=== PATIENT | female | born 1975 | race Hispanic/Latino ===

== ENCOUNTER 2019-08-24 11:44 | Observation (INO) | payer BC, OTHER ==
[~2019-08-24] VITALS: Ht 157.5 cm; Wt 88.5 kg
--- OUTSIDE RECORDS SUMMARY | 2019-08-24 11:47 | XMS REPORT ---
Author Author [facility] Address Unknown Phone Unavailable Care Team Providers Care Statement Services Representative Name Role Phone Unavailable Unavailable Payers Payer Name Policy Type Policy Number Effective Date Expiration Date Problems This patient has no known problems. Allergies, Adverse Reactions, Alerts Allergy Name Allergy Type Status Severity Reaction(s) Onset Date Inactive Date Treating Clinician Comments Penicillins DA Active OR 2008-12-14 00:00:00 Medications This patient has no known medications. Encounters Start Date/Time End Date/Time Encounter Type Admission Type Attending Clinicians Care Facility Care Department Encounter ID 2019-02-05 10:47:50 Outpatient [id number]
[2019-08-24] MEDS ORDERED: SODIUM CHLORIDE 0.9% 1000ML 1,000 ML IV STA (12:13)
[2019-08-24] MEDS ORDERED: MORPHINE SULFATE INJ 4 MG/ML INJ 1ML IV STA (12:17)
[2019-08-24] MEDS ORDERED: ASPIRIN 81 MG CHEW TAB PO ONE ×2 (12:30→14:30)
[2019-08-24 12:36] LABS: BASOPHILS % 0.3 % (0.0-1.0); EOSINOPHILS # (AUTO) 0.3 (0.0-0.4); EOSINOPHILS % 2.6 % (0.0-6.0); HEMATOCRIT 39.8 % (34.2-44.1); HEMOGLOBIN 13.7 g/dL (12.0-16.0); LYMPHOCYTES # (AUTO) 3.2 (1.0-3.2); LYMPHOCYTES % 29.3 % (18.0-39.1); MEAN CORPUSCULAR HEMOGLOBIN 29.5 pg (28-32); MEAN CORPUSCULAR HGB CONC 34.4 g/dL (31-35); MEAN CORPUSCULAR VOLUME 85.8 fL (81-99); MONOCYTES # (AUTO) 0.6 (0.2-0.8); MONOCYTES % 5.1 % (4.4-11.3); NEUTROPHILS # (AUTO) 6.9 (2.1-6.9); NEUTROPHILS % 62.4 % (38.7-80.0); PLATELET COUNT 411 x10e3/uL (140-360); RED BLOOD COUNT 4.64 x10e6/uL (3.6-5.1); RED CELL DISTRIBUTION WIDTH 11.7 % (11.7-14.4)
[2019-08-24 13:14] LABS: ALANINE AMINOTRANSFERASE 33 IU/L (0-55); ALBUMIN 3.9 g/dL (3.5-5.0); ALBUMIN/GLOBULIN RATIO 1.2 (0.8-2.0); ALKALINE PHOSPHATASE 139 IU/L (40-150); BLOOD UREA NITROGEN 12 mg/dL (7-26); BUN/CREATININE RATIO 17 (6-25); CALCIUM 9.7 mg/dL (8.4-10.2); CHLORIDE 100 mmol/L (98-107); CREATINE KINASE 107 IU/L (29-168); CREATININE, SERUM 0.72 mg/dL (0.57-1.11); EST GLOMERULAR FILTRATION RATE > 60 ML/MIN (60-); GLUCOSE 290 mg/dL (74-118); POTASSIUM 3.8 mmol/L (3.5-5.1); SODIUM 137 mmol/L (136-145)
[2019-08-24] MEDS ORDERED: MORPHINE SULFATE INJ 4 MG/ML INJ 1ML IV PRN (14:15)
[2019-08-24 14:38] LABS: ANION GAP 17.8 mmol/L (8-16); CARBON DIOXIDE 23 mmol/L (22-29)
[2019-08-24 15:20] VITALS: BP 137/89
--- NOTE | 2019-08-24 15:20 | NUR ---
PT RECEIVED FROM ER. AAOX4. EDUCATED PT ABOUT HOSPITAL POLICY AND FALL PRECAUTIONS. PT VERBALIZED UNDERSTANDING. AT BEDSIDE. BED IS LOW AND LOCKED. SIDE RAILS X2. CALL LIGHT WITH IN EASY REACH. INSTRUCTED PT TO USE CALL LIGHT FOR ALL THE NEEDS. PT CAME WITH CHEST PAIN. HOME MEDS RECONCILED AND RECHECKED WITH PT. PAGED DR. GOMES AND INFORMED ABOUT PT CHEST PAIN AND HOME MEDS. WAITING FOR THE RESPONSE FROM THE DR. PT DENIES NEEDS AT THIS TIME.
[2019-08-24] MEDS ORDERED: METOPROLOL SUCC25 MG PO (15:35)
[2019-08-24] MEDS ORDERED: GLIMEPIRIDE4 MG PO (15:35)
[2019-08-24] MEDS ORDERED: METFORMIN HCL500 MG PO (15:35)
[2019-08-24] MEDS ORDERED: LISINOPRIL10 MG PO (15:35)
[2019-08-24] MEDS ORDERED: ATORVASTATIN CA10 MG PO (15:35)
--- NOTE | 2019-08-24 15:47 | Diagnostic Imaging Report ---
Examination: Single AP view of the chest. COMPARISON: None. INDICATION: Left-sided chest wall pain DISCUSSION: Lines/tubes: None. Lungs: Linear atelectasis in the left lower lung. Pleura: No pleural effusion or pneumothorax. Heart and mediastinum: The heart and the mediastinum are unremarkable. Bones and soft tissues: No acute bony abnormalities. IMPRESSION: 1. Left lower lung linear atelectasis Signed by: Dr. Denny Li M.D. on 08/24/2019 3:44 PM
[2019-08-24 15:50] VITALS: BP 137/89
[2019-08-24] MEDS: ONDANSETRON HCL INJ 2MG/ML 2ML 2 MG/ML VIAL IV PRN ×2 (15:59→20:51)
[2019-08-24] MEDS ORDERED: DEXTROSE 50% SYRINGE 50 ML IV PRN (16:00)
[2019-08-24] MEDS: LISINOPRIL 10 MG TAB PO SCH (16:06)
[2019-08-24] MEDS: METOPROLOL SUCCINATE 25 MG TAB XL PO SCH (16:07)
--- NOTE | 2019-08-24 16:40 | NUR ---
DR. TALLEY AT BEDSIDE.
[2019-08-24] MEDS ORDERED: KETOROLAC TROMETHAMINE 30 MG/ML VIAL IV NR (17:00)
[2019-08-24] MEDS: INSULIN REGULAR, HUMAN 100 UNIT/1 ML 3ML VIAL SQ SCH ×2 (17:00→20:54)
[2019-08-24] MEDS: ESCITALOPRAM OXALATE 10 MG TAB PO SCH (17:29)
[2019-08-24 18:13] VITALS: BP 137/89
--- NOTE | 2019-08-24 19:00 | NUR ---
BEDSIDE SHIFT REPORT GIVEN TO THE BLACK BELT RN. PT DENIED FURTHER NEEDS.
[2019-08-24 19:20] VITALS: BP 134/88
[2019-08-24] MEDS: ATORVASTATIN 10 MG TAB PO SCH (20:51)
[2019-08-24 22:24] VITALS: BP 134/88
[2019-08-24 23:28] VITALS: BP 122/59
[2019-08-25 00:03] LABS: CREATINE KINASE 71 IU/L (29-168)
[2019-08-25 04:05] VITALS: BP 131/79
[2019-08-25] MEDS ORDERED: ACETAMINOPHEN 325 MG TAB ONE (05:39)
[2019-08-25 05:45] LABS: BASOPHILS % 0.3 % (0.0-1.0); EOSINOPHILS # (AUTO) 0.1 (0.0-0.4); EOSINOPHILS % 0.7 % (0.0-6.0); HEMATOCRIT 35.6 % (34.2-44.1); HEMOGLOBIN 12.2 g/dL (12.0-16.0); LYMPHOCYTES # (AUTO) 2.2 (1.0-3.2); LYMPHOCYTES % 19.6 % (18.0-39.1); MEAN CORPUSCULAR HEMOGLOBIN 29.5 pg (28-32); MEAN CORPUSCULAR HGB CONC 34.3 g/dL (31-35); MEAN CORPUSCULAR VOLUME 86.2 fL (81-99); MONOCYTES # (AUTO) 0.6 (0.2-0.8); MONOCYTES % 4.8 % (4.4-11.3); NEUTROPHILS # (AUTO) 8.5 (2.1-6.9); NEUTROPHILS % 74.3 % (38.7-80.0); PLATELET COUNT 409 x10e3/uL (140-360); RED BLOOD COUNT 4.13 x10e6/uL (3.6-5.1); RED CELL DISTRIBUTION WIDTH 11.6 % (11.7-14.4)
[2019-08-25] MEDS: ACETAMINOPHEN 325 MG TAB PO PRN ×2 (05:51→12:11)
[2019-08-25 05:59] LABS: ALANINE AMINOTRANSFERASE 33 IU/L (0-55); ALBUMIN 3.4 g/dL (3.5-5.0); ALBUMIN/GLOBULIN RATIO 1.1 (0.8-2.0); ALKALINE PHOSPHATASE 127 IU/L (40-150); ANION GAP 13.2 mmol/L (8-16); BLOOD UREA NITROGEN 14 mg/dL (7-26); BUN/CREATININE RATIO 21 (6-25); CALCIUM 9.2 mg/dL (8.4-10.2); CARBON DIOXIDE 27 mmol/L (22-29); CHLORIDE 100 mmol/L (98-107); CREATININE, SERUM 0.68 mg/dL (0.57-1.11); EST GLOMERULAR FILTRATION RATE > 60 ML/MIN (60-); GLUCOSE 305 mg/dL (74-118); POTASSIUM 4.2 mmol/L (3.5-5.1); SODIUM 136 mmol/L (136-145)
[2019-08-25 06:14] LABS: CREATINE KINASE 60 IU/L (29-168)
[2019-08-25 07:22] LABS: CHOL/HDL RATIO 3.6 (3.0-3.6)
[2019-08-25] MEDS: INSULIN REGULAR, HUMAN 100 UNIT/1 ML 3ML VIAL SQ SCH ×4 (07:30→20:29)
--- NOTE | 2019-08-25 07:50 | NUR ---
PATIENT IS ALERT AND IN STABLE CONDITION WITH NO S/S OF RESPIRATORY DISTRESS. NO PAIN VOICED. TELEMETRY APPLIED. CALL LIGHT IS WITHIN REACH, PATIENT INSTRUCTED TO CALL FOR ASSISTANCE NEEDED.
[2019-08-25] MEDS: ESCITALOPRAM OXALATE 10 MG TAB PO SCH (08:15)
[2019-08-25] MEDS: LISINOPRIL 10 MG TAB PO SCH ×2 (08:15→16:14)
[2019-08-25] MEDS: METOPROLOL SUCCINATE 25 MG TAB XL PO SCH ×2 (08:15→16:14)
[2019-08-25 08:57] VITALS: BP 148/87
[2019-08-25 09:01] VITALS: BP 148/87
--- NOTE | 2019-08-25 09:45 | NUR ---
H&P cc; cp HPI: 44yoF, PCP , developed cp for 3 days; some SOB; no dizziness; had stress test about 5yrs ago- reported as negative by pt. PMH: obesity, DM2, HTn, HLD, mood d/o PShx: cholecystecotomy, csection x2 Allergie;s see emr FH/SH; ; no cigs meds; see MAR ROS; no f/c/s/N/V/D/COLLINS/dizziness/skinrash/focal limb weakness/confusion v/s revd PE tired appearing anicteric ns1s2 mod bs soft nt nd no e/t skin dry n. affect a&ox3; [place] labs/meds revd A/P: 44yoF Atypical chest pain- trend enzymes; stress test outpt; use meloxicam Obesity- 1/2 portion sizes BMI 35.7 DM2- uncontrolled; Hb1c/LDL= 9.9/65 HTN- cont BB HLD- cont statin Mood d/o- cont SSRI Prop; lovenox; pepcid dispo: d/c planning; stress test outpt Osvaldo Baez MD, PHD>
[2019-08-25] MEDS ORDERED: ONDANSETRON HCL 4 MG ORAL DISINTEGRATING TAB PO PRN (11:15)
[2019-08-25 13:00] VITALS: BP 139/87
[2019-08-25] MEDS: METFORMIN HCL 750 MG TAB ER PO SCH ×2 (13:41→16:14)
[2019-08-25] MEDS: MELOXICAM 7.5 MG TAB PO SCH (13:55)
[2019-08-25] MEDS: FAMOTIDINE 20 MG TAB PO SCH (16:14)
[2019-08-25 16:37] VITALS: BP 135/91
[2019-08-25] MEDS ORDERED: ENOXAPARIN SOD INJ 40 MG/0.4 ML SYR SC SCH (17:00)
--- NOTE | 2019-08-25 19:19 | NUR ---
PATIENT IN STABLE CONDITION WITH NO S/S OF RESPIRATORY DISTRESS. NO PAIN VOICED. TELEMETRY APPLIED. FAMILY MEMBERS PRESENT IN ROOM. CALL LIGHT IS WITHIN REACH, PATIENT INSTRUCTED TO CALL FOR ASSISTANCE NEEDED. BEDSIDE SHIFT REPORT GIVEN TO ONCOMING NURSE.
[2019-08-25 20:00] VITALS: BP 107/77
[2019-08-25] MEDS: ATORVASTATIN 10 MG TAB PO SCH (20:29)
--- NOTE | 2019-08-25 20:41 | NUR ---
reported to Dr Baez patient c/o headache 02/01 and Tylenol not helping. Patient requesting something else for headache. New order received. Patient updated on POC and new medication.
[2019-08-25] MEDS ORDERED: ACETAMIN/BUTALBITAL/CAFFEINE TAB PO PRN (20:45)
[2019-08-26 00:04] VITALS: BP 119/79
[2019-08-26 04:00] VITALS: BP 116/63
[2019-08-26 05:44] LABS: CHOL/HDL RATIO 3.4 (3.0-3.6)
--- NOTE | 2019-08-26 06:19 | NUR ---
D/C summary Principal Dx: Atypical chest pain- trend enzymes; stress test outpt; use meloxicam Obesity- 1/2 portion sizes BMI 35.7 DM2- uncontrolled; Hb1c/LDL= 9.9/65 Secondary Dx; HTN- cont BB HLD- cont statin Mood d/o- cont SSRI Prop; lovenox; pepcid dispo: d/c planning; stress test outpt 08/26/19 Hba1c/LDL 9.9/45 d/c home; echo read pending; stable f/u pcp 1 week d/c>35mins Osvaldo Baez MD, PHD>
--- NOTE | 2019-08-26 07:04 | NUR ---
Bedside report and rounds completed with oncoming nurse. Patient in bed with call light within reach. No issues or concerns noted.
[2019-08-26] MEDS: INSULIN REGULAR, HUMAN 100 UNIT/1 ML 3ML VIAL SQ SCH ×2 (07:30→11:30)
--- NOTE | 2019-08-26 07:40 | Consultation ---
DATE OF CONSULTATION: 08/24/2019 IDENTIFYING DATA: The patient admitted on the [address] Baez and seen on 23 of August. HISTORY OF PRESENT ILLNESS: This 44-year-old patient was kindly referred for cardiac evaluation. The patient presented to the emergency room complaining of left precordial chest pain. The pain has been there for about three days and the patient was supposed to visit myself on the 24 of August. However, the pain became so severe and kind of paralyzing her that she was brought to the emergency room. The pain that she is complaining about is sharp, aggravated with inspiration, coughing, sneezing, and also with motion. The patient does not seem to be radiating and is not associated with any nausea or vomiting. However, the patient stated that the pain became almost constant. She tried to take some Advil twice a day, which did not seem to be helping her pain and that is when she decided to be evaluated and get help and presented herself to the emergency room. PAST MEDICAL HISTORY: The patient's past history reveals that I did perform a previous cardiac catheterization, which only showed minimal coronary artery disease and normal left ventricular function. Abdominal aortogram also showed no evidence of aneurysm and normal renal arteries. The patient also has a history of hyperlipidemia, diabetes mellitus, hypertension, and she also has a history of tachycardia and palpitations as well as anxiety. ALLERGIES: PENICILLIN. SOCIAL HISTORY: Negative. FAMILY HISTORY: Noncontributory. REVIEW OF SYSTEMS: Remainder of systems review revealed the patient denies any headache or sore throat. The patient denies any fever. She has no cough or sputum production. The patient denies any abdominal pain, diarrhea, or constipation. The patient denies any leg pain or leg swelling. PHYSICAL EXAMINATION: VITAL SIGNS: Reveals temperature of 97.2. NECK: Carotid pulses are present. There is no vascular bruit. CHEST: Clear to auscultation. CARDIOVASCULAR SYSTEM: Normal apical rhythm. First and 2nd are normal. There is no S3. There is no rub. ABDOMEN: Soft. There is no tenderness. No organomegaly. EXTREMITIES: Pulses are present. Both feet are warm. There is no calf tenderness. There is no peripheral edema. NEUROLOGIC: Reveals no motor defects and also pulses present throughout in the lower and upper extremities and carotid arteries. The patient's chest x-ray shows some cardiomegaly and atelectasis of the left lung base, but no evidence of congestive heart failure. Cardiac enzymes have been normal. The patient's laboratories mainly showed an elevated blood glucose with the other parameters being essentially within normal limits. The patient's echocardiogram is abnormal, showing some anterior ST-T changes. However, this has been present in the past and there do not seem to be any changes from previous electrocardiograms. IMPRESSION: 1. Chest pain syndrome, atypical for coronary artery disease. 2. Hypertension. 3. Diabetes mellitus. 4. Anxiety. 5. Increased BMI. I would recommend to give one dose of Toradol 30 mg intravenously to relieve chest pain, which is still present at the moment after the patient has been given some morphine. Also, I would like to start the patient on Lexapro 20 mg daily and obtain echocardiogram to rule out any kind of pericardial disease and repeat the patient's electrocardiogram. At the moment, the patient is on insulin on the sliding scale and she is on Lipitor 10 mg daily, lisinopril 10 mg daily, metoprolol succinate 25 mg twice daily, and Lovenox 40 mg subcu daily as well as 81 mg of aspirin daily and I would recommend to continue the present medications. Thank you very much for letting me see this very nice patient. MD BAILEE Chang/SOPHIE /[id number]
[2019-08-26] MEDS: ACETAMINOPHEN 325 MG TAB PO PRN (07:55)
[2019-08-26 08:24] VITALS: BP 139/76
[2019-08-26] MEDS ORDERED: ASPIRIN 81 MG CHEW TAB PO SCH (09:00)
[2019-08-26] MEDS: FAMOTIDINE 20 MG TAB PO SCH (09:13)
[2019-08-26] MEDS: MELOXICAM 7.5 MG TAB PO SCH (09:13)
[2019-08-26] MEDS: METOPROLOL SUCCINATE 25 MG TAB XL PO SCH (09:13)
[2019-08-26] MEDS: ESCITALOPRAM OXALATE 10 MG TAB PO SCH (09:13)
[2019-08-26] MEDS: LISINOPRIL 10 MG TAB PO SCH (09:13)
[2019-08-26] MEDS: METFORMIN HCL 750 MG TAB ER PO SCH (09:13)
[2019-08-26 09:31] VITALS: BP 139/76
[2019-08-26 10:55] VITALS: BP 127/77
[2019-08-26] MEDS ORDERED: ASPIRIN CHEW81 MG PO (10:59)
[2019-08-26] MEDS ORDERED: MELOXICAM7.5 MG PO (10:59)
[2019-08-26] MEDS ORDERED: FAMOTIDINE20 MG PO (10:59)
[2019-08-26] MEDS ORDERED: LEXAPRO10 MG PO (10:59)
--- NOTE | 2019-08-26 16:06 | NUR ---
PATIENT DISCHARGE HOME- PATIENT OFF THE UNIT AT 1606 PER WHEELCHAIR ACCOMPANIED BY PCT TO THE FRONT LOBBY. PATIENT IN STABLE CONDITION WITH NO S/S OF RESPIRATORY DISTRESS. NO PAIN VOICED. IV REMOVED WITH TIP INTACT. DISCHARGE TEACHING AND INSTRUCTIONS GIVEN TO THE PATIENT- PATIENT IS AWARE MEDICATIONS HAVE BEEN CALLED IN TO HER PHARMACY BY DR. GOMES. ALL PERSONAL ITEMS TAKEN WITH THE PATIENT AND HER .
== END 2019-08-26 16:06 | disposition home or self-care (01) ==
LOC: ER 11:44 → ERHOLD 13:51 → MED/SURG2 15:17
PROVIDERS: ADMIT Internal Medicine; ATTEND Internal Medicine
DX: R07.89 Other chest pain (principal); I10 Essential (primary) hypertension; F41.9 Anxiety disorder, unspecified; E11.65 Type 2 diabetes mellitus with hyperglycemia; Z88.0 Allergy status to penicillin; E66.9 Obesity, unspecified; Z68.35 Body mass index [BMI] 35.0-35.9, adult; E78.5 Hyperlipidemia, unspecified; F39 Unspecified mood [affective] disorder; Z79.82 Long term (current) use of aspirin; Z79.84 Long term (current) use of oral hypoglycemic drugs
CPT/HCPCS: 36415 ×3; 71046; 80053 ×2; 80061 ×2; 81025; 82550 ×2; 82553 ×2; 82948 ×2; 83036; 83880; 84484 ×2; 85025 ×2; 93005 ×2; 93306; 99284; G0378 ×3; J1650; J1817; J1885; J2270; J2405; J7030

== ENCOUNTER 2025-03-24 09:14 | Observation (INO) | payer BC, OTHER ==
[~2025-03-24] VITALS: Ht 154.9 cm; Wt 72.6 kg
[~2025-03-24 09:14] MED LIST: ASPIRIN CHEW81 MG PO; ATORVASTATIN CA10 MG PO; FAMOTIDINE20 MG PO; GLIMEPIRIDE4 MG PO; LEXAPRO10 MG PO; LISINOPRIL10 MG PO; MELOXICAM7.5 MG PO; METFORMIN HCL500 MG PO; METOPROLOL SUCC25 MG PO
[2025-03-24 09:27] VITALS: RESP 16; TEMP 97.6
[2025-03-24 10:17] LABS: BASOPHILS % 0.3 % (0.0-1.0); EOSINOPHILS % 2.4 % (0.0-6.0); LYMPHOCYTES % 32.2 % (18.0-39.1); MONOCYTES % 5.4 % (4.4-11.3); NEUTROPHILS % 59.5 % (38.7-80.0); RED CELL DISTRIBUTION WIDTH 11.0 % (11.7-14.4)
[2025-03-24] MEDS: ONDANSETRON HCL INJ 2MG/ML 2ML 2 MG/ML VIAL IV STA (10:26)
[2025-03-24] MEDS: Morphine 2mg Syringe 2 MG/ML SYR IV STA (10:27)
[2025-03-24] MEDS: ASPIRIN 81 MG CHEW TAB PO STA (10:27)
[2025-03-24] MEDS: SODIUM CHLORIDE 0.9% 1000ML 1,000 ML IV STA (10:27)
[2025-03-24 10:45] LABS: EST GLOMERULAR FILTRATION RATE 111 ML/MIN (>=60)
[2025-03-24 11:09] LABS: INR 0.96
[2025-03-24 11:30] VITALS: PULSE 82
[2025-03-24] MEDS ORDERED: NITROGLYCERIN 0.4 MG SUBL SL PRN (11:30)
[2025-03-24] MEDS ORDERED: Morphine 4mg INJECTION 4 MG/ML INJ IV PRN (11:30)
[2025-03-24] MEDS ORDERED: ONDANSETRON HCL INJ 2MG/ML 2ML 2 MG/ML VIAL IV PRN (11:30)
[2025-03-24] MEDS: CLOPIDOGREL BISULFATE 75 MG TAB PO ONE (11:54)
[2025-03-24] MEDS ORDERED: HYDRALAZINE HCL 20 MG/ML VIAL IV PRN (14:15)
[2025-03-24] MEDS ORDERED: DEXTROSE 50% SYRINGE 50 ML IV PRN ×2 (14:15)
[2025-03-24] MEDS ORDERED: BENZONATATE 100 MG CAP PO PRN (14:15)
[2025-03-24] MEDS ORDERED: LIDOCAINE 4% PATCH TP PRN (14:15)
[2025-03-24] MEDS ORDERED: POTASSIUM CHLORIDE 20 MEQ TAB CR PO PRN (14:15)
[2025-03-24] MEDS ORDERED: DIPHENHYDRAMINE HCL 25 MG CAP PO PRN (14:15)
[2025-03-24] MEDS ORDERED: MELATONIN 5 MG TABLET PO PRN (14:15)
[2025-03-24] MEDS ORDERED: DOCUSATE SODIUM 100 MG CAP PO PRN (14:15)
[2025-03-24] MEDS ORDERED: ACETAMINOPHEN 325 MG TAB PO PRN (14:15)
[2025-03-24] MEDS ORDERED: SIMETHICONE 80 MG CHEW PO PRN (14:15)
[2025-03-24] MEDS ORDERED: ALBUTEROL/IPRATROPIUM 3 ML NEB NEB PRN (14:15)
[2025-03-24 15:46] VITALS: BP 135/92; PULSE 83; RESP 18; TEMP 97.7; O2SAT 97
[2025-03-24] MEDS: INSULIN LISPRO 100 UNIT/1 ML 3ML VIAL SQ SCH (16:18)
[2025-03-24 17:00] VITALS: PULSE 93; RESP 18; O2SAT 96
[2025-03-24] MEDS: ENOXAPARIN SOD INJ 40 MG/0.4 ML SYR SC SCH (17:08)
[2025-03-24] MEDS: METOPROLOL SUCCINATE 25 MG TAB XL PO SCH (17:20)
[2025-03-24] MEDS: SODIUM CHLORIDE 0.9% 1000ML 1,000 ML IV SCH (18:36)
[2025-03-24] MEDS ORDERED: IOPAMIDOL 370 MG/ML 100 ML INFUS..BTL INJ ONE (19:10)
[2025-03-24 20:00] VITALS: BP 125/88; PULSE 75; RESP 18; TEMP 98.1; O2SAT 98
[2025-03-24 20:05] VITALS: PULSE 85; RESP 18; O2SAT 98
[2025-03-24] MEDS ORDERED: ATORVASTATIN 10 MG TAB PO SCH (21:00)
[2025-03-24] MEDS: ATORVASTATIN 10 MG TAB PO SCH (21:10)
[2025-03-25] VITALS (11 sets, daily range): BP systolic 99–132; BP diastolic 64–88; PULSE 69–91; RESP 15–19; TEMP 97–98.8; O2SAT 94–100
[2025-03-25 05:44] LABS: BASOPHILS % 0.3 % (0.0-1.0); EOSINOPHILS % 3.9 % (0.0-6.0); LYMPHOCYTES % 35.4 % (18.0-39.1); MONOCYTES % 6.2 % (4.4-11.3); NEUTROPHILS % 54.0 % (38.7-80.0); RED CELL DISTRIBUTION WIDTH 11.0 % (11.7-14.4)
[2025-03-25 06:22] LABS: CHOL/HDL RATIO 2.7 (3.0-3.6); EST GLOMERULAR FILTRATION RATE 113.0 ML/MIN (>=60); LDL CHOLESTEROL 32.0 MG/DL (60-130)
[2025-03-25 07:10] LABS: PHOSPHORUS 3.6 MG/DL (2.3-4.7)
[2025-03-25] MEDS: PANTOPRAZOLE SOD 40 MG TABEC PO SCH (07:30)
[2025-03-25] MEDS: CLOPIDOGREL BISULFATE 75 MG TAB PO SCH (09:00)
[2025-03-25] MEDS: ASPIRIN 81 MG ENTERIC COATED PO SCH (09:00)
[2025-03-25] MEDS ORDERED: HEPARIN SOD/SOD CHLORIDE 2,000 ML ONE (09:30)
[2025-03-25] MEDS ORDERED: LIDOCAINE HCL 1% 30ML-PF VIAL ONE (09:30)
[2025-03-25] MEDS ORDERED: IOPAMIDOL 370 MG/ML 100 ML INFUS..BTL INJ ONE (09:30)
[2025-03-25] MEDS ORDERED: SODIUM CHLORIDE 0.9% 1000ML 1,000 ML ONE (09:33)
[2025-03-25] MEDS ORDERED: VERAPAMIL HCL 2.5 MG/ML 2 ML VIAL ONE (09:33)
[2025-03-25] MEDS ORDERED: HEPARIN SOD (PORCINE) 1000 UNIT/ML 30ML ONE (09:33)
[2025-03-25] MEDS ORDERED: MIDAZOLAM HCL 2 MG/2 ML VIAL ONE (09:46)
[2025-03-25] MEDS ORDERED: FENTANYL CITRATE/PF 100MCG/2 ML INJ ONE (09:47)
== END 2025-03-25 17:32 | disposition home or self-care (01) ==
LOC: ER 09:22 → ERHOLD 11:17 → MED/SURG 15:34
PROVIDERS: ADMIT Internal Medicine; ATTEND Internal Medicine
DX: I25.10 Atherosclerotic heart disease of native coronary artery without angina pectoris (principal); I10 Essential (primary) hypertension; E11.9 Type 2 diabetes mellitus without complications; Z79.84 Long term (current) use of oral hypoglycemic drugs; E78.5 Hyperlipidemia, unspecified; F41.9 Anxiety disorder, unspecified
CPT/HCPCS: 36415; 71045; 71260; 80053 ×2; 80061; 81025; 82550 ×2; 82948 ×2; 83036; 83735 ×2; 84100; 84443; 84484 ×2; 85025 ×2; 85379; 85610; 85730; 93005; 93306; 93458; 94799 ×2; 99284; C1766; C1769; C1887; G0378 ×2; J1650; J2003; J2250; J2270; J2405; J3010; J7030 ×2; Q9967 ×2; 77002; 99152; J1644